=== PATIENT | female | born 1980 | race Two or more races ===

== ENCOUNTER 2025-02-19 01:38 | Inpatient (IN) ==
[2025-02-19 02:09] LABS: AMNISURE ROM TEST THERE IS A RUPTURE (NO RUPTURE)
[2025-02-19 02:36] LABS: MEAN PLATELET VOLUME 10.6 fL (7.4-11.0); RED CELL DISTRIBUTION WIDTH 16.6 % (11.6-16.5)
[2025-02-19] MEDS ORDERED: REGLAN INJ 10 MG VIAL IVP PRN (02:40)
[2025-02-19] MEDS ORDERED: ZOFRAN INJ 4 MG VIAL IVP PRN (02:40)
[2025-02-19] MEDS ORDERED: NUBAIN INJ 20 MG AMP IVP PRN (02:40)
[2025-02-19] MEDS ORDERED: OXYTOCIN 20 UNIT/1,000 ML-NS 20 UNIT/1,000 ML PLAST..BAG IV PRN (02:40)
[2025-02-19 02:49] LABS: COR CA(FOR HYPOALB) 9.3 mg/dL (8.5-10.1); CREATININE 0.54 mg/dL (0.55-1.02); eGFR NON BLACK RACES > 60 (>60)
[2025-02-19] MEDS: BETADINE SOLN ONE (03:05)
[2025-02-19] MEDS: D5 1/2 NS 1,000 ML 1,000 ML IV SCH (03:05)
[2025-02-19] MEDS: PITOCIN IVP ONE (03:26)
[2025-02-19] MEDS: OXYTOCIN 20 UNIT/1,000 ML-NS 20 UNIT/1,000 ML PLAST..BAG IV SCH (03:27)
[2025-02-19] MEDS ORDERED: MOTRIN TAB 800 MG PO PRN ×2 (03:34→04:30)
--- NOTE | 2025-02-19 03:54 | OB.OPNOTE ---
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 Mother and infant stable. (2) Advanced maternal age (AMA) in : Pre-Op Diagnosis: Second stage labor complete. Mother and stable. Post-Op Diagnosis: Third stage labor complete Procedure: Normal vaginal delivery at full term Surgeon: Porsche Conner MD EBL: 300 Type of Fluids Used:: Lactated Ringers Complications:: None Drains/Tubes Placed: None Specimen: Placenta Findings: Called to see patient who was found to be completely dilated in the ER. Transported to delivery room. Allowed to push. head delivered with adequate maternal pushing. Body delivered. Cord clamped and cut at one minute. Infant passed off to nursery staff. Placenta delivered spontaneously, intact. Perineum intact. Fundus firm with massage. Hemostasis observed on perineum. Amniotic fluid appeared clear, and rupture of membranes was spontaneous (before delivery). Time of SROM unknown. Mother, infant stable. Family at bedside including a son who was able to help translate.
--- NOTE | 2025-02-19 03:55 | DR.H&PGYN ---
H&P OBSTERICS/GYNECOLOGY Date Date of Exam: 02/19/25 Chief Complaint (1) Active labor at term: (2) Advanced maternal age (AMA) in : Allergies Allergies Allergy/AdvReac Type Severity Reaction Status Date / Time No Known Allergies Allergy Verified 02/19/25 02:03 History of Present Illness History of Present Illness: Began having spotting 2 days ago. Found to be complete in the ER. Obsterical History : 3 Para: 2 Social History Does patient currently use any type of tobacco product: No Have you used tobacco products in the last 12 months: No Type of Tobacco Use: None Does any household member use tobacco: No Alcohol Use: None Medications Active Medications Oxytocin/Sodium Chloride (Oxytocin 20 Unit/1,000 Ml-Ns) 20 unit in 1,000 mls @ 6 mls/hr IV PER PROTOCOL PRN; Protocol PRN Reason: PER PROTOCOL Dextrose/Sodium Chloride (D5 1/2 Ns 1,000 Ml) 1,000 mls @ 125 mls/hr IV Q8H SAMANTHA Oxytocin/Sodium Chloride (Oxytocin 20 Unit/1,000 Ml-Ns) 20 unit in 1,000 mls @ 125 mls/hr IV Q8H SAMANTHA; Protocol Ibuprofen (Ibuprofen 800 Mg Tab) 800 mg PO Q8H PRN PRN Reason: MILD TO MODERATE PAIN Metoclopramide HCl (Metoclopramide Inj 10 Mg/2 Ml Vial) 10 mg IVP Q6H PRN PRN Reason: Indigestion/Nausea Nalbuphine HCl (Nalbuphine Hcl Inj 20 Mg/1 Ml Amp) 5 - 10 mg IVP Q2H PRN PRN Reason: MODERATE TO SEVERE PAIN Ondansetron HCl (Ondansetron Hcl 4 Mg/2 Ml Inj) 4 mg IVP Q8H PRN PRN Reason: NAUSEA/VOMITING Physical Exam Temperature: 98.5 F Blood Pressure: 130/78 Respiratory Rate: 21 Pulse Rate: 63 O2 Sat by Pulse Oximetry: 99 Oriented: Normal Respiratory: Normal Cardiovascular: Normal : Normal Plan Plan: care. Review H&P Reviewed: Yes Patient was examined?: Yes
[2025-02-19] MEDS ORDERED: HYPERRHO S/D (or RHOGAM) IM PRN (04:30)
[2025-02-19] MEDS ORDERED: ROXICODONE TAB 5 MG PO PRN (04:30)
[2025-02-19] MEDS ORDERED: ZOFRAN TAB 4 MG PO PRN (04:30)
[2025-02-19] MEDS: D5 1/2 NS 1,000 ML 1,000 ML IV ONE (05:05)
[2025-02-19] MEDS: PITOCIN ONE (05:05)
[2025-02-19 05:38] LABS: MEAN PLATELET VOLUME 10.3 fL (7.4-11.0)
[2025-02-19 05:43] LABS: RED CELL DISTRIBUTION WIDTH 16.6 % (11.6-16.5)
[2025-02-19] MEDS: PRENATAL PLUS PO SCH (08:27)
[2025-02-19] MEDS: ADACEL or BOOSTRIX TDaP VACCINE IM ONE (14:35)
[2025-02-20] MEDS ORDERED: PHARMACY CONSULT XX SCH (09:00)
--- NOTE | 2025-02-20 09:00 | W.DIS.FURT ---
Summary of Discharge Discharge Summary of Date Date of Exam: 02/20/25 Admission Date Date of Admission: 02/19/25 Admission Diagnosis Hospital Course: Patient is a 44-year-old 3 para 3 who presented to the hospital in second stage of labor and had a stat delivery on 02/19/2025. Patient is currently day #1 status post normal spontaneous vaginal delivery without complications. A prescription for ibuprofen has been sent to the patient's pharmacy which is [facility]. Patient can follow-up with Dr. Anderson her care provider, in 4 to 5 weeks . In the meanwhile, if she experiences any urgent problems she is welcome to present to the hospital emergency department. Vital Signs: Vital Signs (72 hours) 02/19/25 01:39 02/19/25 02:00 02/19/25 02:04 Temperature 98.5 F Pulse Rate 74 71 Pulse Rate [Left Radial] Respiratory Rate 21 Blood Pressure 156/89 Blood Pressure [Left Arm] Blood Pressure [Right Arm] 139/63 O2 Sat by Pulse Oximetry 99 98 Oxygen Delivery Method Room Air 02/19/25 02:15 02/19/25 02:15 02/19/25 02:30 Temperature Pulse Rate 73 67 Pulse Rate [Left Radial] Respiratory Rate Blood Pressure 135/61 Blood Pressure [Left Arm] Blood Pressure [Right Arm] O2 Sat by Pulse Oximetry 98 97 Oxygen Delivery Method 02/19/25 02:30 02/19/25 02:45 02/19/25 02:45 Temperature Pulse Rate 63 Pulse Rate [Left Radial] Respiratory Rate Blood Pressure 131/73 130/78 Blood Pressure [Left Arm] Blood Pressure [Right Arm] O2 Sat by Pulse Oximetry 99 Oxygen Delivery Method 02/19/25 03:10 02/19/25 03:30 02/19/25 03:44 Temperature 98.0 F 98.5 F Pulse Rate 80 63 Pulse Rate [Left Radial] Respiratory Rate 18 21 Blood Pressure 113/64 130/78 Blood Pressure [Left Arm] Blood Pressure [Right Arm] O2 Sat by Pulse Oximetry 99 Oxygen Delivery Method Room Air 02/19/25 03:45 02/19/25 03:48 02/19/25 03:53 Temperature Pulse Rate 67 64 64 Pulse Rate [Left Radial] Respiratory Rate 18 Blood Pressure 118/63 127/60 Blood Pressure [Left Arm] Blood Pressure [Right Arm] O2 Sat by Pulse Oximetry 98 99 Oxygen Delivery Method 02/19/25 03:58 02/19/25 04:00 02/19/25 04:03 Temperature Pulse Rate 64 64 55 L Pulse Rate [Left Radial] Respiratory Rate 18 Blood Pressure 119/64 127/60 Blood Pressure [Left Arm] Blood Pressure [Right Arm] O2 Sat by Pulse Oximetry 99 99 Oxygen Delivery Method 02/19/25 04:08 02/19/25 04:13 02/19/25 04:15 Temperature Pulse Rate 58 L 56 L 58 L Pulse Rate [Left Radial] Respiratory Rate 18 Blood Pressure 130/65 130/65 Blood Pressure [Left Arm] Blood Pressure [Right Arm] O2 Sat by Pulse Oximetry 99 99 Oxygen Delivery Method 02/19/25 04:18 02/19/25 04:23 02/19/25 04:28 Temperature Pulse Rate 57 L 59 L 62 Pulse Rate [Left Radial] Respiratory Rate Blood Pressure 133/69 132/71 Blood Pressure [Left Arm] Blood Pressure [Right Arm] O2 Sat by Pulse Oximetry 99 99 98 Oxygen Delivery Method 02/19/25 04:30 02/19/25 04:45 02/19/25 04:50 Temperature 99.0 F Pulse Rate 57 L 54 L Pulse Rate [Left Radial] Respiratory Rate 17 20 Blood Pressure 133/69 146/72 Blood Pressure [Left Arm] Blood Pressure [Right Arm] O2 Sat by Pulse Oximetry Oxygen Delivery Method Room Air 02/19/25 05:05 02/19/25 05:20 02/19/25 05:35 Temperature 98.5 F 98.4 F 98.2 F Pulse Rate 54 L 56 L 56 L Pulse Rate [Left Radial] Respiratory Rate 18 18 20 Blood Pressure 139/70 134/68 138/76 Blood Pressure [Left Arm] Blood Pressure [Right Arm] O2 Sat by Pulse Oximetry Oxygen Delivery Method 02/19/25 05:50 02/19/25 06:50 02/19/25 07:00 Temperature 98.3 F 97.7 F Pulse Rate 51 L 50 L Pulse Rate [Left Radial] Respiratory Rate 20 20 Blood Pressure 134/74 145/86 Blood Pressure [Left Arm] Blood Pressure [Right Arm] O2 Sat by Pulse Oximetry Oxygen Delivery Method Room Air 02/19/25 07:50 02/19/25 08:00 02/19/25 08:50 Temperature 97.5 F L 98.4 F 97.7 F Pulse Rate 54 L 49 L Pulse Rate [Left Radial] 54 L Respiratory Rate 18 20 19 Blood Pressure 146/73 143/72 Blood Pressure [Left Arm] 141/71 Blood Pressure [Right Arm] O2 Sat by Pulse Oximetry 97 Oxygen Delivery Method Room Air 02/19/25 09:50 02/19/25 12:00 02/19/25 16:00 Temperature 97.6 F 98.5 F 98.7 F Pulse Rate 51 L Pulse Rate [Left Radial] 51 L 62 Respiratory Rate 20 20 20 Blood Pressure 143/72 Blood Pressure [Left Arm] 137/69 107/58 Blood Pressure [Right Arm] O2 Sat by Pulse Oximetry 98 97 Oxygen Delivery Method Room Air Room Air 02/19/25 19:00 02/19/25 20:00 02/20/25 00:00 Temperature 98.1 F 98.5 F Pulse Rate Pulse Rate [Left Radial] 56 L 56 L Respiratory Rate 19 20 Blood Pressure Blood Pressure [Left Arm] 135/76 148/72 Blood Pressure [Right Arm] O2 Sat by Pulse Oximetry 98 98 Oxygen Delivery Method Room Air Room Air 02/20/25 04:00 02/20/25 07:00 Temperature 98.4 F Pulse Rate Pulse Rate [Left Radial] 50 L Respiratory Rate 19 Blood Pressure Blood Pressure [Left Arm] 143/73 Blood Pressure [Right Arm] O2 Sat by Pulse Oximetry 98 Oxygen Delivery Method Room Air Room Air Labs: Laboratory Last Values WBC 13.5 X10^3/uL (3.6-10.0) H 02/19/25 05:24 RBC 4.15 X10^6/uL (3.5-5.4) 02/19/25 05:24 Hgb 10.9 g/dL (12.0-16.0) L 02/20/25 03:44 Hct 32.4 % (36.0-47.0) L 02/20/25 03:44 MCV 84.6 fL (80.0-100.0) 02/19/25 05:24 MCH 28.2 pg (27.0-34.0) 02/19/25 05:24 MCHC 33.3 g/dL (33.0-35.0) 02/19/25 05:24 RDW 16.6 % (11.6-16.5) H 02/19/25 05:24 Plt Count 183 X10^3/uL (150.0-450.0) 02/19/25 05:24 MPV 10.3 fL (7.4-11.0) 02/19/25 05:24 Neut % (Auto) 86.8 % (42.0-75.0) H 02/19/25 05:24 Lymph % (Auto) 6.6 % (21.0-51.0) L 02/19/25 05:24 [place] % (Auto) 4.5 % (0.0-13.0) 02/19/25 05:24 Eos % (Auto) 1.7 % (0.9-2.9) 02/19/25 05:24 Baso % (Auto) 0.4 % (0.2-1.0) 02/19/25 05:24 Neut # (Auto) 11.7 x10^3/uL (2.2-4.8) H 02/19/25 05:24 Lymph # (Auto) 0.9 X10^3/uL (1.3-2.9) L 02/19/25 05:24 [place] # (Auto) 0.6 x10^3/uL (0.3-0.8) 02/19/25 05:24 Eos # (Auto) 0.2 x10^3/uL (0.0-0.2) 02/19/25 05:24 Baso # (Auto) 0.1 X10^3/uL (0.0-0.1) 02/19/25 05:24 Absolute Nucleated RBC 0.3 /100WBC 02/19/25 05:24 Sodium 138 mmol/L (136-145) 02/19/25 02:12 Corrected Sodium TNP 02/19/25 02:12 Potassium 3.6 mmol/L (3.5-5.1) 02/19/25 02:12 Chloride 106 mmol/L (98-107) 02/19/25 02:12 Carbon Dioxide 18.8 mmol/L (21-32) L 02/19/25 02:12 BUN 10 mg/dL (7-18) 02/19/25 02:12 Creatinine 0.54 mg/dL (0.55-1.02) L 02/19/25 02:12 Est GFR (MDRD) Af Amer > 60 (>60) 02/19/25 02:12 Est GFR (MDRD) Non-Af > 60 (>60) 02/19/25 02:12 Glucose 81 mg/dL (65-99) 02/19/25 02:12 Calcium 8.4 mg/dL (8.5-10.1) L 02/19/25 02:12 Corrected Calcium 9.3 mg/dL (8.5-10.1) 02/19/25 02:12 Total Bilirubin 0.30 mg/dL (0.2-1.0) 02/19/25 02:12 AST 30 Units/L (15-37) 02/19/25 02:12 ALT 34 Units/L (12-78) 02/19/25 02:12 Alkaline Phosphatase 256 Units/L (46-116) H 02/19/25 02:12 Total Protein 8.0 g/dL (6.4-8.2) 02/19/25 02:12 Albumin 2.9 g/dL (3.4-5.0) L 02/19/25 02:12 Globulin 5.1 g/dL (2.5-4.5) H 02/19/25 02:12 Albumin/Globulin Ratio 0.6 Ratio (1.1-2.1) L 02/19/25 02:12 Placental [id number] There is a rupture (NO RUPTURE) 02/19/25 01:59 RPR Nonreactive (NONREACTIVE) 02/19/25 02:12 HIV 1&2 Antibody Non reactive (NONREACTIVE) 02/19/25 02:12 HIV P24 Antigen Non reactive (NONREACTIVE) 02/19/25 02:12 Blood Type O POSITIVE 02/19/25 02:20 Antibody Screen Negative 02/19/25 02:12 Baby's Blood Type Cancelled 02/19/25 02:12 RhIG Eligibility Cancelled 02/19/25 02:12 Maternal Bleed Cancelled 02/19/25 02:12 Doses of RhIg Required Cancelled 02/19/25 02:12 Reason For Visit: SPONTANEOUS RUPTURE OF MEMBRANES Discharge Date Discharge Date: 02/20/25 Discharge Diagnosis All Active Problems (Updated 02/19/25 @ 03:42 by Porsche Conner MD) Advanced maternal age (AMA) in (Acute) Active labor at term (Acute) Plan of Treatment: Continue with present treatment and follow up plan. Pt is to keep follow up appointment as instructed and take medications as ordered. Discharge Medications Discharge Medications: No Known Allergies Allergy (Verified 02/19/25 02:03) New Prescriptions ibuprofen 800 mg tablet 800 mg PO Q8H PRN 30 days #30 tabs 02/20/25 [Rx] Discharge Disposition Assessment: day #1 status post normal spontaneous vaginal delivery without complication Discharge Disposition: Patient is discharged to home in self-care Discharge Condition: Stable upon discharge Discharge Plan Discharge Plan Hospital Course: Patient is a 44-year-old 3 para 3 who presented to the hospital in second stage of labor and had a stat delivery on 02/19/2025. Patient is currently day #1 status post normal spontaneous vaginal delivery without complications. A prescription for ibuprofen has been sent to the patient's pharmacy which is [facility]. Patient can follow-up with Dr. Anderson her care provider, in 4 to 5 weeks . In the meanwhile, if she experiences any urgent problems she is welcome to present to the hospital emergency department. Patient Disposition: 01 HOME, SELF-CARE Condition: Stable Health Concerns: Post Hospitalization: new medications and changes needed to prevent readmission or further decline. Pt educated and given instructions on all concerns. Care Plan Goals: Problem: High Risk for Bleeding Goal: Reduced Risk of Bleeding Instructions: Follow provided instructions. Follow up with primary physician as directed. Contact primary care physician or report to the closest Emergency Room if condition worsens. Plan of Treatment: Continue with present treatment and follow up plan. Pt is to keep follow up appointment as instructed and take medications as ordered. Assessment: day #1 status post normal spontaneous vaginal delivery without complication Prescription drug monitoring program results: PDMP was not reviewed Prescriptions: New ibuprofen 800 mg Tablet 800 mg PO Q8H PRN30 Days Qty: 30 1RF Follow ups/Referrals Follow ups/Referrals: MERRY ANDERSON [STAFF PHYSICIAN, MEDICAL] - 1 WEEK Instructions Instructions: Vaginal Delivery, Care After, Care After Vaginal Delivery Stand Alone Forms: Excuse From Work or School, Find Help Web Site, Post Hospital Follow Up Care Print Language: ITALIAN
--- NOTE | 2025-02-20 09:04 | NOTE.PROOB ---
progress Note OB- Date Date of Exam: 02/20/25 Subjective Data Subjective: day #1. Patient is without complaints. No shortness of breath, no dizziness, states amount of bleeding is normal. No pain and has no further problems or questions. Objective Data 02/20/25 03:44 02/19/25 02:12 Objective Data: Well-developed well-nourished obese female appears to be in no apparent distress. Lungs clear to auscultation bilaterally. Heart regular rate and rhythm. Fundus below umbilicus. Fundus nontender. Extremities no edema. Assessment Assessment: day #1 status post normal spontaneous vaginal delivery without complication. May be discharged today and follow-up with Dr. Howell in 4 to 5 weeks. Plan (1) Active labor at term: (2) Advanced maternal age (AMA) in :
[2025-02-20 09:31] VITALS: BP 123/73; PULSE 62; RESP 18; TEMP 98; O2SAT 97
== END 2025-02-20 12:20 | disposition home or self-care (01) | DRG 807 ==
LOC: ER 01:38 → LD 02:41 → MED/SURG 04:34
PROVIDERS: ADMIT Obstetrics & Gynecology; ATTEND Obstetrics & Gynecology
DX: Z55.8 Other problems related to education and literacy; Z37.0 Single live birth; Z3A.38 38 weeks gestation of pregnancy; O80 Encounter for full-term uncomplicated delivery